=== PATIENT | male | born 1950 | race Caucasian/White ===

== ENCOUNTER 2018-03-14 11:21 | Day surgery (SDC) | payer OTHER ==
[2018-03-14] MEDS ORDERED: MIDAZOLAM 2 MG/2 ML VIAL IVP PRN (12:21)
[2018-03-14] MEDS ORDERED: FLUMAZENIL 0.5 MG/5 ML MDV IVP PRN (12:21)
[2018-03-14] MEDS ORDERED: NALOXONE HCL 0.4 MG/ML INJ IVP PRN (12:21)
[2018-03-14] MEDS ORDERED: fentaNYL 100 MCG/2 ML INJ IVP PRN (12:21)
[2018-03-14] MEDS ORDERED: NS 1,000 ML IV SCH (12:30)
[2018-03-14] MEDS ORDERED: IOPAMIDOL (ISOVUE-300) 100 ML BTL ONE (12:46)
--- NOTE | 2018-03-14 13:10 | PDPROPOC ---
Sedation Plan of Care Sedation Plan of Care: vital signs stable, mental status noted, patient educated of risks, benefits, alternatives, patient can tolerate sedation ASA Classification: ASA 3 Planned drugs: fentanyl, midazolam Mallampati Score: Class 2 Mallampati Reference Image: Patient passed 3-3-2 rule?: Yes
--- NOTE | 2018-03-14 13:15 | PDHPUP ---
History & Physical Update H&P update statement: This history and physical update is based on an assessment of the patient which was completed after admission or registration (within 24 hours), but prior to the surgery/procedure. I dictated a new H&P note into the system. H&P update: H&P reviewed & patient examined, no change in patient's condition since H&P completed (New H&P dictated)
--- NOTE | 2018-03-14 13:49 | GHP ---
DATE OF ADMISSION: 03/14/2018 The patient was seen and evaluated in the pre area at approximately 12:45 p.m. HISTORY OF PRESENT ILLNESS: This patient is a 67-year-old man with history of COPD and smoking, who was recently seen at [facility] by my partner, Dr. Foss, after having a seizure. 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 This measured 1.9 x 2.1 x 1.6 cm. This was further worked up with CT angiography and MRI at [facility]. He was subsequen tly discharged in good condition and presents again today for diagnostic cerebral angiography. He multani s not had any new symptoms and otherwise is feeling well today. REVIEW OF SYSTEMS: A 10-point review of systems is negative other than described above in the HPI. PAST MEDICAL HISTORY: 1. Hypertension. 2. Hyperlipidemia. 3. Tobacco abuse. 4. Type 2 diabetes. 5. Hyperthyroidism. 6. COPD. 7. Abdominal aortic atherosclerotic disease. 8. Osteopenia. 9. Peripheral vascular disease. 10. Salivary gland excision. ALLERGIES: No known drug allergies. MEDICATIONS: 1. Albuterol. 2. Aspirin. 3. Lisinopril. 4. Metformin. 5. Pravachol. 6. Methimazole. SOCIAL HISTORY: The patient is . He presents with his and son. He is a daily smoker of at least a pack and a half per day for almost 50 years. He lives independently. 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 FAMILY HISTORY: Positive for cancer, stroke, and mental illness in the father and diabetes in the mo ther. PHYSICAL EXAMINATION: VITAL SIGNS: Currently, he is afebrile with normal stable vital signs. NEURO LOGIC: He is awake, alert, and oriented x3. Cranial nerves 2-12 are grossly normal. He has a heali ng wound at the lateral canthus of the right eye consistent with his fall after the seizure. He has full 5/5 strength at the deltoid, biceps, triceps, wrist flexors and extensors, and office assistance bilaterally. In the lower extremities, he has 5/5 strength at the hip flexors and extensors, knee flexors and ex tensors, and plantar and dorsiflexion. His gait examination was deferred. Sensation is normal. Ivet p tendon reflexes are intact. IMAGING REVIEW: See HPI. ASSESSMENT/PLAN: The patient is a 67-year-old man who presents for elective diagnostic cerebral sheldon ogram. 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 I explained to him the risks and benefits of cerebral angiography, and he agrees t o proceed. We also discussed the significant risks that he would have of continuing smoking, althoug h he is not at all interested in quitting at this moment in time. I told him that we will likely harman edule a followup appointment later down the road to further discuss treatment of his aneurysm and susy pearson will not discuss that at length today given the sedation during the procedure. He is fine with t his plan. /[id number]/MODL
[2018-03-14 14:16] VITALS: BP 121/63
[2018-03-14] MEDS ORDERED: ONDANSETRON 4 MG/2 ML VIAL IVP PRN (14:21)
[2018-03-14] MEDS ORDERED: OXYCODONE/APAP 5/325 TAB PO PRN (14:21)
--- NOTE | 2018-03-14 14:23 | PDCONSULT ---
Banquet Chef Note: NEUROENDOVASCULAR resting well, no complaints AAOx3, speech fluent CNII-XII normal full strength and sensation, no drift groin c/d/i, distal pulses palpable s/p diagnostic angiogram - no complications - d/c home - will followup in clinic for discussion of treatment options Sailaja
== END 2018-03-14 17:28 | disposition home or self-care (01) ==
LOC: FIMAGING 11:21
PROVIDERS: ATTEND Neurological Surgery
DX: I67.1 Cerebral aneurysm, nonruptured (principal); I67.2 Cerebral atherosclerosis; I10 Essential (primary) hypertension; E78.5 Hyperlipidemia, unspecified; F17.210 Nicotine dependence, cigarettes, uncomplicated; J44.9 Chronic obstructive pulmonary disease, unspecified; E11.9 Type 2 diabetes mellitus without complications; E03.9 Hypothyroidism, unspecified
CPT/HCPCS: 36223; 36224; 36225; 99152; C1769; C1894; C1760; J1644; J2250; J2310; J3010; Q9967

== ENCOUNTER 2018-04-15 09:14 | Inpatient (IN) | payer OTHER ==
[2018-04-15] MEDS ORDERED: LIDOCAINE 2% 5 ML SDV ONE (09:22)
[2018-04-15] MEDS ORDERED: ROCURONIUM 50 MG/5 ML VIAL ONE ×3 (09:22→15:15)
[2018-04-15] MEDS ORDERED: DEXAMETHASONE 4 MG/ML VIAL ONE (09:22)
[2018-04-15] MEDS ORDERED: PROPOFOL/EMULSION 500 MG/50 ML BOTTLE IV ONE ×3 (09:22→16:53)
[2018-04-15] MEDS ORDERED: PROPOFOL 200 MG/20 ML VIAL ONE ×4 (09:22→16:53)
[2018-04-15] MEDS ORDERED: fentaNYL 250 MCG/5 ML INJ ONE (09:22)
[2018-04-15] MEDS ORDERED: ONDANSETRON 4 MG/2 ML VIAL ONE (09:22)
[2018-04-15] MEDS ORDERED: ACETAMINOPHEN 500 MG TAB PO ONE (09:31)
[2018-04-15] MEDS ORDERED: ceFAZolin 2 GM/DEXTROSE 100 ML IV ONE (09:31)
[2018-04-15] MEDS ORDERED: LR 1,000 ML IV ONE (09:32)
[2018-04-15] MEDS ORDERED: AVITENE POWDER 1 GM JAR TP ONE (09:36)
[2018-04-15] MEDS ORDERED: BACITRACIN ZINC 0.5 OZ OINTTUBE TP ONE (09:36)
[2018-04-15] MEDS ORDERED: THROMBIN (BOVINE) 20,000 UNIT VIAL TP ONE (09:36)
[2018-04-15] MEDS ORDERED: CHLORHEXIDINE GLUC HIBICLENS 118 ML BTL TP ONE (09:36)
[2018-04-15] MEDS ORDERED: BUPIVACAINE 0.25% 30 ML SDV ONE (09:36)
[2018-04-15] MEDS ORDERED: MANNITOL 20% 100 GM/500 ML BAG IV ONE (09:36)
[2018-04-15] MEDS ORDERED: GENTAMICIN SULFATE 80 MG/2 ML VIAL ONE (09:36)
[2018-04-15] MEDS ORDERED: EPINEPHrine 1 MG/ML INJ ONE (09:37)
[2018-04-15] MEDS ORDERED: INDOCYANINE GREEN 25 MG VIAL ONE (09:37)
[2018-04-15] MEDS ORDERED: CEFAZOLIN 2 GM/DEXTROSE/100 ML BAG IV ONE (09:38)
[2018-04-15] MEDS ORDERED: ACETAMINOPHEN 500 MG TAB ONE (09:38)
[2018-04-15] MEDS ORDERED: LR 500 ML IV PRN (10:00)
[2018-04-15] MEDS ORDERED: ONDANSETRON 4 MG/2 ML VIAL IVP PRN ×2 (10:00→16:17)
[2018-04-15] MEDS ORDERED: HYDROmorphONE/DILAUDID 2 MG/ML INJ IVP PRN (10:00)
[2018-04-15] MEDS ORDERED: MIDAZOLAM 2 MG/2 ML VIAL IVP ONE (10:00)
[2018-04-15] MEDS ORDERED: fentaNYL 100 MCG/2 ML INJ IVP PRN (10:00)
[2018-04-15] MEDS ORDERED: MEPERIDINE 25 MG/0.5 ML AMP IVP PRN (10:00)
[2018-04-15] MEDS ORDERED: oxyCODONE IR 5 MG TAB PO PRN (10:00)
[2018-04-15] MEDS ORDERED: METOCLOPRAMIDE 10 MG/2 ML VIAL IVP PRN (10:00)
[2018-04-15] MEDS ORDERED: PROMETHAZINE HCL 25 MG/ML INJ IVP PRN ×2 (10:00→16:17)
[2018-04-15] MEDS ORDERED: PHENYLEPHRINE HCL 100 MCG/ML SYR IVP PRN (10:00)
[2018-04-15] MEDS ORDERED: NALOXONE HCL 0.4 MG/ML INJ IVP PRN (10:00)
[2018-04-15 10:38] LABS: PLATELET COUNT 139 10^3/uL (150-400)
[2018-04-15] MEDS ORDERED: MIDAZOLAM 2 MG/2 ML VIAL ONE (13:48)
--- NOTE | 2018-04-15 13:52 | PDHPUP ---
History & Physical Update H&P update statement: This history and physical update is based on an assessment of the patient which was completed after admission or registration (within 24 hours), but prior to the surgery/procedure. H&P update: H&P reviewed & patient examined, no change in patient's condition since H&P completed
[2018-04-15] MEDS ORDERED: DEXMEDETOMIDINE HCL 200 MCG in NS 50 ML IV ONE (15:00)
[2018-04-15] MEDS ORDERED: hydrALAZINE 20 MG/ML VIAL ONE ×5 (15:14→18:47)
--- NOTE | 2018-04-15 15:21 | POSTANESTH ---
Post Anesthetic Evaluation Cardiovascular Status: Normal, Stable Respiratory Status: Normal, Stable Level of Consciousness/Mental Status: Can Participate in Eval Pain Control: Adequate, Prn Tx Ordered Nausea/Vomiting Control: Adequate, Prn Tx Ordered Complications Possibly Related to Anesthesia: None Noted
--- NOTE | 2018-04-15 15:35 | PDANEPAE ---
ANE Past Medical History - Cardiovascular History Hx Hypertension: Yes Hx Arrhythmias: No Hx Chest Pain: No Hx Coronary Artery / Peripheral Vascular Disease: Yes Hx CHF / Valvular Disease: No Hx Palpitations: No Cardiovascular History Comment: PVD. hyperlipidemia. pcp monitors bp medications - Pulmonary History Hx COPD: Yes Hx Asthma/Reactive Airway Disease: No Hx Recent Upper Respiratory Infection: No Hx Oxygen in Use at Home: No Hx Sleep Apnea: No Sleep Apnea Screening Result - Last Documented: Positive Pulmonary History Comment: jasmina triggers. instructed pt to bring inhalers to hospital - Neurologic History Hx Cerebrovascular Accident: No Hx Seizures: Yes Hx Dementia: No Neurologic History Comment: last seizure x1 03/02/18. cerebral aneurysm - Endocrine History Hx Diabetes: Yes Hyperthyroid: Yes Endocrine History Comment: type 2. hyperthyroidism not symptomatic - Renal History Hx Renal Disorders: Yes Renal History Comment: "some kidney disease" per - Liver History Hx Hepatic Disorders: No - Neurological & Psychiatric Hx Hx Neurological and Psychiatric Disorders: No - Cancer History Hx Cancer: No - Congenital Disorder History Hx Congenital Disorders: No - GI History Hx Gastrointestinal Disorders: Yes Gastrointestinal History Comment: colonoscopy with polyps removed - Other Health History Other Health History: wears glasses. full dentures - Chronic Pain History Chronic Pain: No - Surgical History Prior Surgeries: 03/14/18 diagnostic cerebral arteriogram with Sailaja. right saliva gland removed ANE Review of Systems Review of Systems: - Exercise capacity METS (RN): 4 METS ANE Patient History - Allergies Allergies/Adverse Reactions: No Known Allergies Allergy (Verified 04/15/18 09:51) - Home Medications Home Medications: Atorvastatin Calcium [Lipitor 40 mg (*)] 40 mg PO HS 03/14/18 [Last Taken ] Budesonide/Formoterol 160/4.5 [Symbicort 160-4.5 Mcg Inh (*)] 1 puffs IH BID 05/28 [Last Taken 04/15/18] Lisinopril [Zestril 10 mg (*)] 10 mg PO DAILY 03/14/18 [Last Taken 04/14/18] Methimazole [Tapazole 5MG (*)] 7.5 mg PO MWF 03/14/18 [Last Taken 04/13/18] levETIRAcetam [Keppra 500 mg (*)] 500 mg PO BID 03/14/18 [Last Taken 04/14/18] Acetaminophen [Tylenol ES 500 mg (*)] 500 mg PO Q6HRS PRN 04/12/18 [Last Taken 04/14/18] Albuterol [Proventil Inhaler HFA (*)] 2 puffs IH BID 04/12/18 [Last Taken ] Herbals/Supplements -Info Only 1 ea PO DAILY 04/12/18 [Last Taken 04/14/18] Methimazole [Tapazole 5MG (*)] 5 mg PO SUTUTHSA 04/12/18 [Last Taken 04/14/18] metFORMIN HCL [Glucophage 500 mg (*)] 500 mg PO BID 04/12/18 [Last Taken ] - NPO status NPO Since - Liquids (Date): 04/15/18 NPO Since - Liquids (Time): 08:00 NPO Since - Solids (Date): 04/14/18 NPO Since - Solids (Time): 23:00 - Smoking Hx Smoking Status: Heavy smoker - Family Anes Hx Family Hx Anesthesia Complications: none ANE Labs/Vital Signs - Labs Result Diagrams: 04/15/18 10:00 04/15/18 10:00 - Vital Signs Blood Pressure: 132/78 Heart Rate: 61 Respiratory Rate: 16 O2 Sat (%): 93 Height: 180.34 cm Weight: 78.018 kg ANE Physical Exam - Airway Neck exam: FROM Mallampati Score: Class 2 Mouth exam: dentures - Pulmonary Pulmonary: no respiratory distress, no rales or rhonchi, clear to auscultation - Cardiovascular Cardiovascular: regular rate and rhythym, no murmur, rub, or gallop - ASA Status ASA Status: III ANE Anesthesia Plan Anesthesia Plan: general endotracheal anesthesia
[2018-04-15] MEDS ORDERED: SUGAMMADEX SODIUM 200 MG/2 ML VIAL IVP ONE (15:41)
[2018-04-15] MEDS ORDERED: MAGNESIUM HYDROXIDE 30 ML UDCUP PO PRN (16:04)
[2018-04-15] MEDS ORDERED: POLYETHYLENE GLYCOL 3350 17 GM PKT PO PRN (16:04)
[2018-04-15] MEDS ORDERED: LACTULOSE 20 GM/30 ML UDCUP PO PRN (16:04)
[2018-04-15] MEDS ORDERED: BISACODYL 10 MG SUPP PR PRN (16:04)
[2018-04-15] MEDS ORDERED: ONDANSETRON DISINTEGRATING 4 MG TAB PO PRN (16:17)
[2018-04-15] MEDS ORDERED: HYDROCODONE/APAP 10/325 TAB PO PRN (16:17)
[2018-04-15] MEDS ORDERED: ACETAMINOPHEN 325 MG TAB PO PRN (16:17)
[2018-04-15] MEDS ORDERED: diphenhydrAMINE 25 MG CAP PO PRN (16:17)
[2018-04-15] MEDS ORDERED: METHOCARBAMOL 750 MG TAB PO PRN (16:17)
--- NOTE | 2018-04-15 17:20 | PDMN ---
Medical Necessity Medical necessity: [facility] [place] [facility] S410 Craniotomy, 3 days: 67 yo s/p frontal craniotomy for aneurysm clipping, [facility] only
[2018-04-15] MEDS ORDERED: PAPAVERINE HCL 60 MG/2 ML SDV ONE (17:41)
[2018-04-15] MEDS: metFORMIN HCL 500 MG TAB PO SCH (18:20)
[2018-04-15] MEDS ORDERED: METOPROLOL TARTRATE 5 MG/5 ML INJ ONE ×2 (18:38→18:47)
--- NOTE | 2018-04-15 20:12 | PDCONSULT ---
Store Leader Note: NEUROSURGERY resting well in PACU, recently taken off precidex lethargic but awakens to stim, answers a few questions follows simple commands x 4 limbs and localizes briskly with good strength wound c/d/i s/s drain output of about 50cc POD#0 s/p left OZ craniotomy for clipping of giant partially thrombosed Acomm aneurysm - doing well, likely will take some time to fully awaken - drain to thumb imprint suction - CT head in the morning - will do angiogram sunday or - SBP < 140 Sailaja
[2018-04-15] MEDS: BUDESONIDE/FORMOTEROL 160/4.5 60 PUFFS/MDI IH SCH (20:42)
[2018-04-15] MEDS: ALBUTEROL 60 PUFFS/8 GM MDI IH SCH (20:42)
--- NOTE | 2018-04-15 20:49 | GOP ---
[f rep st] OPERATIVE REPORT DATE OF OPERATION: 04/15/2018 SURGEON: Tonny Menard MD ANESTHESIA: General endotracheal. The temporary clip time was approximately 5 minutes with a 2nd short temporary clip time for a clip adjustment of about 2.5 minutes. The EEG was completely stable throughout the entire case with no changes. PREOPERATIVE DIAGNOSIS: Status post seizure with a large nearly 3 cm partially thrombosed anterior communicating artery aneurysm projecting into the gyrus rectus on the left. POSTOPERATIVE DIAGNOSIS: Status post seizure with a large nearly 3 cm partially thrombosed anterior communicating artery aneurysm projecting into the gyrus rectus on the left. PROCEDURE PERFORMED: 1. Left modified orbital zygomatic skull base approach. 2. 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 3. Use of the operative microscope. 4. Intraoperative EEG monitoring. FINDINGS: Successful aneurysm clipping. SPECIMENS: None. ESTIMATED BLOOD LOSS: 150 cc. DESCRIPTION OF PROCEDURE: After informed consent was obtained from the patient , the patient was brought to the operating room, was placed in a supine position on the operating table. A formal time-out was performed, identifying the patient by name, medical record number and date of . Preoperative antibiotics were given. The endotracheal tube was placed and general endotracheal anesthesia was smoothly induced. The patient's head was placed in the Parson pins and turned slightly toward the right side with the malar eminence at the highest point. All appropriate leads were placed for EEG monitoring and baseline EEG was obtained. A curvilinear incision standard for pterional craniotomy was marked and the hair was clipped. 20 cc of 0.25% Marcaine with epinephrine was infiltrated in the skin for hemostasis. The head was prepped and draped in the normal sterile fashion. The skin incision was made using a 10 blade and the subcutaneous tissues were dissected using monopolar electrocautery. The superficial temporal artery was carefully preserved and the galea was opened. Chepe clips were placed for hemostasis. The subgaleal dissection was then performed exposing anteriorly. A small muscle cuff of the temporalis was opened superiorly and the temporalis fascia was dissected down to the zygoma. The temporalis muscle was then opened and reflected inferiorly toward the zygoma. A subperiosteal dissection was carried toward the orbit and the dissection was carried into the orbit with care to preserve the periorbita where the periosteum was continuous with it. Once this exposure was obtained, 3 bur holes were created in standard pterional fashion. A standard pterional craniotomy was turned using the craniotome. A small dural rent was noticed near the orbit. All bleeding was controlled with bipolar electrocautery and Gelfoam. High-speed drill was then used to drill down the sphenoid wing and the subtemporal region giving good exposure of the orbit. At this point, the dura was stripped from the superior orbital roof and the sphenoid wing and a bone-cutting blade was used to perform a modified orbital zygomatic approach with an orbitotomy. First medially toward the orbit, a cut was made down posteriorly onto the orbital roof. A 2nd cut was made lateral to the frontal zygomatic suture and these 2 cuts were connected about 2.5 cm posteriorly to remove the orbital roof. The periorbita was intact. Posteriorly , we then removed the remainder of the orbit exposing the superior orbital fissure laterally. At this point, all bleeding was controlled with bipolar electrocautery and Gelfoam. The dura was then opened in a curvilinear fashion with its base at the sphenoid wing and this was used to retract the orbital contents giving a larger area of exposure for the approach. The operative microscope was then brought onto the field and the remainder of the procedure was performed under high-power magnification. First, the most proximal portion of the sylvian fissure was split using careful microdissection in the arachnoid bands. The optic nerve was identified and laterally the carotid artery was also identified. We continued this dissection medially and the ipsilateral A-1 segment was identified and carried medially toward the contralateral optic nerve. The optic chiasm and contralateral optic nerve were completely skeletonized. This allowed us to see the A-Comm complex in the midline. Dissection to the contralateral side revealed the contralateral A-1 segment and coursing anteriorly we were able to see the contralateral A-2 segment. This allowed a pretty good exposure, but the most proximal portion of the aneurysm neck was visualized and the aneurysm was jutting out into the ipsilateral gyrus rectus. We continued to careful microdissection in the interhemispheric fissure, but we were still unable to fully localize the contralateral or the ipsilateral A2. This did cause us to need to place a self-retaining retractor such that some gyrus rectus could be resected. The Fong retractor was placed and gyrus rectus resection was obtained. The aneurysm was at the ipsilateral A1, A2 junction. Therefore, the anterior communicating artery was visualized and was patent. A temporary clip was placed across the anterior communicating artery which allowed us to not need to place any temporary clips on the contralateral A1 or A2 segment leaving this open throughout the case. A temporary clip was also placed on the ipsilateral A1 segment to allow the final dissection of the dome. This allowed the aneurysm to soften quite a bit and on the posterior aspect we were able to visualize the contralateral A2. During this temporary clipping which lasted approximately 5 minutes, we then selected a 10 mm straight [employer] aneurysm clip which was placed across the aneurysm neck with care not to obstruct the contralateral A2. Due to the depth, the clip had to be replaced a couple of times, but ultimately I got a good closure of the aneurysm. The temporary clips were then removed, restoring full flow. Flow in the bilateral A -1 and A-2 segments and anterior communicating artery was confirmed using Doppler ultrasound and indocyanine Green angiography. There was a dog ear proximally on the aneurysm dome and distally I placed another 10 mm aneurysm clip distal to the 1st clip to be sure that we had closed the entire dome given the large size of this aneurysm. We then placed a shorter 6 mm clip on the dog ear and the entire anterior communicating artery complex was visualized and appeared that the aneurysm was completely clipped. Again, we checked with Doppler ultrasound and all flow in all vessels appeared quite good. Next, a 27- gauge needle was used to puncture the aneurysm dome coursing into the gyrus rectus. When no blood was returned, an 11 blade was used to cut into the dome and thrombectomy was performed from inside of the aneurysm sac to decrease the mass effect and allow the frontal lobe to relax. After this, all of the vessels were carefully inspected. These were covered with some papaverine soaked Gelfoam, which was later removed. All bleeding was controlled with bipolar electrocautery and some Surgicel. The retractor was removed and the frontal lobe was covered with Surgicel. The wound was copiously irrigated using sterile saline and no further bleeding was visualized. The frontal lobe had good relaxation. At this point, the dura was tacked closed using interrupted 4-0 Nurolon's. The dura was covered with some Gelfoam. The orbital roof was plated back in place using [employer] titanium plates and screws. The craniotomy flap was then plated back in place using [employer] titanium plates and screws. The supraorbital bar was also reconstructed using a piece of titanium mesh. At this point, the temporalis muscle and its fascia was closed over the mesh using 2-0 Vicryl's. A 10-Maltese KAITY drain was placed in the subgaleal space and the wound was again copiously irrigated using Bacitracin irrigation. The galea was closed using interrupted 2-0 Vicryl's and the skin was closed using a running 4-0 Monocryl. The patient was awakened in the operating room and was extubated and was transferred to the PACU in stable condition. There were no operative complications. I was scrubbed and present for the entire procedure. All sponge and needle counts were correct at the end of the case. ROOFER: Bart Foss M.D. BRIEF CLINICAL HISTORY: The patient is a 67-year-old heavy smoker who presented to the [facility] after having a seizure. Scanning revealed a heterogeneous mass in the left gyrus rectus with some surrounding edema. Ultimately this was identified as a partially thrombosed aneurysm. He subsequently underwent angiography by myself here at [facility] identifying the small residual filling neck. We did discuss both endovascular and surgical options, but given a large mass, I felt that surgical treatment would be more favorable. FLUIDS AND URINE OUTPUT: Per the anesthesia record. DRAINS: A subgaleal KAITY. /[id number]/MODL MTDD
[2018-04-15] MEDS ORDERED: levETIRAcetam 500 MG TAB PO SCH (21:00)
[2018-04-15] MEDS: ATORVASTATIN CALCIUM 40 MG TAB PO SCH (22:01)
[2018-04-15] MEDS: NS W/ 20 KCl/L 1,000 ML IV SCH (22:03)
[2018-04-15] MEDS: SENNOSIDES/DOCUSATE SODIUM TAB PO SCH (22:08)
[2018-04-15] MEDS: levETIRAcetam 500MG/NACL 100 ML IV SCH (22:46)
[2018-04-16] MEDS: niCARdipine/NACL 200 ML IV PRN ×2 (04:19→09:41)
--- NOTE | 2018-04-16 08:37 | NEUSURGPN ---
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 Menard. Subjective: No overnight issues. Objective: Patient lethargic but will awake to stimuli and sternal rub Follows commands x 4 Incision with dressing c/d/i KAITY drain x 1 - Physician Discussed Patient with : [facility] Neurosurgery Physical Exam - Vitals, I&O, Labs I and O 04/15/18 04/16/18 04/17/18 05:59 05:59 05:59 Intake Total 2252 Output Total 1765 Balance 487 Weight 78.018 kg Intake: IV Intake (ml) 1500 IV Infused (ml) 752 NS W/ 20 KCl/L 1,000 ml @ 752 75 mls/hr IV CONT EMIR Rx #:[id number] Output: Urine (ml) 1400 Catheter 1400 Estimated Blood Loss (ml) 150 KAITY Drain Output (ml) 215 Anterior Head 215 Vital Signs Temp Pulse Resp BP Pulse Ox 36.3 C 78 20 130/49 H 92 04/16/18 07:30 04/16/18 07:30 04/16/18 07:30 04/16/18 07:30 04/16/18 07:30 Laboratory Results 04/15/18 10:00 04/15/18 10:00 ICD10 Worksheet Patient Problems: Problems Problem Status Onset Aneurysm Acute - ICD10 Problem Qualifiers (1) Aneurysm
[2018-04-16] MEDS: LISINOPRIL 10 MG TAB PO SCH (09:03)
[2018-04-16] MEDS: METHIMAZOLE 5 MG TAB PO SCH (09:04)
[2018-04-16] MEDS: levETIRAcetam 500MG/NACL 100 ML IV SCH ×2 (09:04→21:01)
[2018-04-16] MEDS: metFORMIN HCL 500 MG TAB PO SCH ×2 (09:04→18:23)
[2018-04-16] MEDS: SENNOSIDES/DOCUSATE SODIUM TAB PO SCH ×2 (09:04→19:28)
[2018-04-16] MEDS: NS W/ 20 KCl/L 1,000 ML IV SCH (09:05)
[2018-04-16] MEDS: BUDESONIDE/FORMOTEROL 160/4.5 60 PUFFS/MDI IH SCH ×3 (09:18→20:59)
[2018-04-16] MEDS: ALBUTEROL 60 PUFFS/8 GM MDI IH SCH ×3 (09:19→20:59)
[2018-04-16] MEDS: hydrALAZINE 20 MG/ML VIAL IVP PRN (09:36)
[2018-04-16] MEDS ORDERED: *MD ORDERING ONLY-DEXAMETHASONE TAPER PO SCH (12:45)
--- NOTE | 2018-04-16 13:09 | ASMTCMCOM ---
CM Note CM Note Notes: Pt is a 67 yo M, underwent cranyotomy for aneurysm. Pt's at bedside, Mami. Pt's needs TBD at this time. PT/OT pending evals. CM to follow. Plan: TBD Date Signed: 04/16/2018 01:08 PM Electronically Signed By:CELI Morgan
[2018-04-16] MEDS: DEXAMETHASONE 4 MG TAB PO SCH ×3 (13:52→23:56)
[2018-04-16] MEDS ORDERED: levETIRAcetam 1000MG/NACL 100 ML IV ONE (15:15)
[2018-04-16] MEDS: ATORVASTATIN CALCIUM 40 MG TAB PO SCH (19:29)
[2018-04-16] MEDS: NS 1,000 ML IV SCH (21:02)
[2018-04-17] MEDS: DEXAMETHASONE 4 MG TAB PO SCH ×3 (05:31→21:50)
[2018-04-17] MEDS ORDERED: MIDAZOLAM 2 MG/2 ML VIAL IVP PRN (07:05)
[2018-04-17] MEDS ORDERED: HEPARIN 10,000 UNIT/10 ML MDV (1,000 UNIT/ML) IVP PRN (07:05)
[2018-04-17] MEDS ORDERED: FLUMAZENIL 0.5 MG/5 ML MDV IVP PRN (07:05)
[2018-04-17] MEDS ORDERED: fentaNYL 100 MCG/2 ML INJ IVP PRN (07:05)
[2018-04-17] MEDS ORDERED: PROTAMINE SULFATE 50 MG/5 ML VIAL IVP PRN (07:05)
[2018-04-17] MEDS ORDERED: NALOXONE HCL 0.4 MG/ML INJ IVP PRN (07:05)
[2018-04-17] MEDS ORDERED: NS 1,000 ML IV SCH (07:15)
[2018-04-17] MEDS ORDERED: LIDOCAINE 1% 300 MG/30 ML SDV ONE (07:18)
[2018-04-17] MEDS ORDERED: IOPAMIDOL (ISOVUE-300) 100 ML BTL ONE (07:18)
--- NOTE | 2018-04-17 08:09 | PDPROPOC ---
Sedation Plan of Care Sedation Plan of Care: vital signs stable, mental status noted, patient educated of risks, benefits, alternatives ASA Classification: ASA 3 Planned drugs: fentanyl Mallampati Score: Class 1 Mallampati Reference Image: Patient passed 3-3-2 rule?: Yes
--- NOTE | 2018-04-17 08:11 | PDCONSULT ---
Principal Accounts Clerk Note: NEUROSURGERY doing well, just did angiogram AAOx3, speech fluent full strength and sensation, no drift wound c/d/i, swelling of orbit improving POD#2 s/p OZ crani for clipping of giant Acomm aneurysm - angio shows complete obliteration of aneurysm, good flow - leave drain another day, remove tomorrow - PT/OT - ok to tx to floor - continue wound care Sailaja
[2018-04-17] MEDS: levETIRAcetam 500MG/NACL 100 ML IV SCH (09:16)
[2018-04-17] MEDS: HEPARIN 5,000 UNIT/0.5 ML INJ SC SCH ×2 (09:16→21:50)
[2018-04-17] MEDS: METHIMAZOLE 5 MG TAB PO SCH (10:44)
[2018-04-17] MEDS: SENNOSIDES/DOCUSATE SODIUM TAB PO SCH ×2 (10:44→21:50)
[2018-04-17] MEDS: metFORMIN HCL 500 MG TAB PO SCH ×2 (10:45→17:43)
[2018-04-17] MEDS: LISINOPRIL 10 MG TAB PO SCH (10:45)
[2018-04-17] MEDS: BUDESONIDE/FORMOTEROL 160/4.5 60 PUFFS/MDI IH SCH ×2 (11:22→22:00)
[2018-04-17] MEDS: ALBUTEROL 60 PUFFS/8 GM MDI IH SCH ×2 (11:22→22:00)
--- NOTE | 2018-04-17 13:11 | SOAPPROG ---
SOAP Progress Note Assessment/Plan: Assessment: 67 yo M POD #2 craniotomy for clipping of acomm aneurysm Plan: neuro: stable and doing well overall Angio this am with no evidence of residual aneurysm PT/OT on keppra transfer to floor Q4 hour neuro checks please call with neuro changes seen by Dr Menard earlier today 04/17/18 13:08 Subjective: No headaches, no N/V. Objective: Vital Signs Temp Pulse Resp BP Pulse Ox 37.1 C 96 19 116/52 L 96 04/17/18 00:00 04/17/18 12:00 04/17/18 12:00 04/17/18 12:00 04/17/18 12:00 Laboratory Results 04/15/18 10:00 04/15/18 10:00 04/16/18 04/17/18 04/18/18 05:59 05:59 05:59 Intake Total 2252 1739 Output Total 1765 1950 250 Balance 487 -211 -250 Awake, alert, oriented to name/place does not always cooperate with questions PERRL, left periorbital swelling, no facial droop ZOILA x 4 + light touch C/D/I ICD10 Worksheet Patient Problems: Problems Problem Status Onset Aneurysm Acute
[2018-04-17] MEDS: ATORVASTATIN CALCIUM 40 MG TAB PO SCH (21:50)
[2018-04-18] MEDS: levETIRAcetam 500MG/NACL 100 ML IV SCH ×3 (00:26→20:20)
[2018-04-18] MEDS: NS 1,000 ML IV SCH (00:36)
[2018-04-18] MEDS: DEXAMETHASONE 4 MG TAB PO SCH (06:26)
--- NOTE | 2018-04-18 09:15 | NEUSURGPN ---
Assessment/Plan: Assessment/Plan: Assessment: 67 yo M POD #3 craniotomy for clipping of acomm aneurysm Plan: neuro: Had increased confusion yesterday evening and overnight along with agitation and pulling at lines/drains, etc. Please limit any narcotics today and give Tylenol only. Will also stop steroids as this may be causing some delirium. Will remove KAITY drain at lunch today Angio done yesterday with no evidence of residual aneurysm PT/OT on keppra Q4 hour neuro checks please call with neuro changes Patient discussed with Dr. Menard as well S: Sleeping. Per RN very agitated overnight and restless, pulling at drains and confused. Per , he ate dinner last night but was somewhat confused as well. O: Somnolent, not participatory to exam this morning and grumbling Ecchymoses and swelling around left eye is improving WATSON X4 KAITY X1- minimal output Incision c/d/i - Physician Discussed Patient with Dr.: Menard Neurosurgery Physical Exam - Vitals, I&O, Labs I and O 04/17/18 04/18/18 04/19/18 05:59 05:59 05:59 Intake Total 1739 Output Total 1950 1015 Balance -211 -1015 Intake: Oral (ml) 240 IV Infused (ml) 1499 NS W/ 20 KCl/L 1,000 ml @ 1171 75 mls/hr IV CONT EMIR Rx #:[id number] Ns 1,000 ml @ 75 mls/hr 306 IV CONT EMRI Rx#: [id number] niCARdipine/NACL 200 ml @ 22 Titrate IV PRN PRN Rx#: [id number] Output: Urine (ml) 1900 1000 Urinal 1900 1000 KAITY Drain Output (ml) 50 15 Anterior Head 50 15 Other: Number of Voids Urinal 1 1 Vital Signs Temp Pulse Resp BP Pulse Ox 36.8 C 65 14 116/60 94 04/18/18 07:58 04/18/18 07:58 04/18/18 07:58 04/18/18 07:58 04/18/18 07:58 Laboratory Results 04/15/18 10:00 04/15/18 10:00 ICD10 Worksheet Patient Problems: Problems Problem Status Onset Aneurysm Acute
[2018-04-18] MEDS: ALBUTEROL 60 PUFFS/8 GM MDI IH SCH ×2 (09:56→20:07)
[2018-04-18] MEDS: BUDESONIDE/FORMOTEROL 160/4.5 60 PUFFS/MDI IH SCH ×2 (09:56→20:06)
[2018-04-18] MEDS: LISINOPRIL 10 MG TAB PO SCH (10:08)
[2018-04-18] MEDS: metFORMIN HCL 500 MG TAB PO SCH ×2 (10:12→18:54)
[2018-04-18] MEDS: SENNOSIDES/DOCUSATE SODIUM TAB PO SCH ×2 (10:13→20:03)
[2018-04-18] MEDS: METHIMAZOLE 5 MG TAB PO SCH (10:13)
[2018-04-18] MEDS: HEPARIN 5,000 UNIT/0.5 ML INJ SC SCH ×2 (11:40→20:04)
[2018-04-18] MEDS: hydrALAZINE 20 MG/ML VIAL IVP PRN (12:30)
--- NOTE | 2018-04-18 14:42 | ASMTCMCOM ---
CM Note CM Note Notes: OT rec inpatient rehab yesterday PT rec inpatient rehab and today pt declined PT two attempts to work with him PREP COOK kevin pending. [facility] inpatient rehab order input today they will follow pt- concern about pt current activity tolerance. Pt is having some confusion and agitation. Spoke with pt Mami and discussed all the d/c options, provided her the inpatient rehab, SNF and C choice lists. Mami states she ideally wants pt home and is encouraged by pt recognizing her today and walking to the bathroom. Mami reports she would have the help of her son at home. CM to follow pt progress for d/c planning. D/c plan is TBD. Date Signed: 04/18/2018 02:41 PM Electronically Signed By:KARAN Scott
[2018-04-18] MEDS ORDERED: DEXAMETHASONE 4 MG TAB PO SCH (18:00)
[2018-04-18] MEDS: ATORVASTATIN CALCIUM 40 MG TAB PO SCH (20:03)
--- NOTE | 2018-04-19 07:35 | SOAPPROG ---
SOAP Progress Note Assessment/Plan: Plan: Please limit any narcotics today and give Tylenol only. Will also stop steroids as this may be causing some delirium. Angio: no evidence of residual aneurysm PT/OT/ST on keppra Q4 hour neuro checks please call with neuro changes Patient discussed with Dr. Menard as well Subjective: asleep, wakes easily and is comfortable and cooperative with exam Denies pain. is present and states he was up all night. Objective: Vital Signs Temp Pulse Resp BP Pulse Ox 37.2 C 68 16 138/63 H 89 L 04/19/18 04:00 04/19/18 04:00 04/19/18 04:00 04/19/18 04:00 04/19/18 04:00 Laboratory Results 04/15/18 10:00 04/15/18 10:00 04/18/18 04/19/18 04/20/18 05:59 05:59 05:59 Intake Total 350 Output Total 1015 0 Balance -1015 350 NEuro: PERRLA, EOMI speech clear follows commands x 4 slight right triceps weakness no facial droop no pronator drift. Incision: CDI. NO KAITY present CTH 04/18 : small area of evolving ischemia in left frontal lobe. Dr. Menard aware. Minimally worse edema around Left caudate head - per report. ICD10 Worksheet Patient Problems: Problems Problem Status Onset Aneurysm Acute
[2018-04-19] MEDS: LISINOPRIL 10 MG TAB PO SCH (08:19)
[2018-04-19] MEDS: metFORMIN HCL 500 MG TAB PO SCH ×2 (08:19→16:42)
[2018-04-19] MEDS: METHIMAZOLE 5 MG TAB PO SCH ×2 (08:20→08:21)
[2018-04-19] MEDS: SENNOSIDES/DOCUSATE SODIUM TAB PO SCH ×2 (08:20→21:08)
[2018-04-19] MEDS: HEPARIN 5,000 UNIT/0.5 ML INJ SC SCH ×2 (08:22→21:07)
[2018-04-19] MEDS: levETIRAcetam 500MG/NACL 100 ML IV SCH ×2 (08:35→21:08)
[2018-04-19] MEDS: BUDESONIDE/FORMOTEROL 160/4.5 60 PUFFS/MDI IH SCH ×2 (08:46→21:48)
[2018-04-19] MEDS: ALBUTEROL 60 PUFFS/8 GM MDI IH SCH ×2 (08:46→21:48)
[2018-04-19] MEDS ORDERED: DEXAMETHASONE 2 MG TAB PO SCH (18:00)
[2018-04-19] MEDS: hydrALAZINE 20 MG/ML VIAL IVP PRN (21:07)
[2018-04-19] MEDS: ATORVASTATIN CALCIUM 40 MG TAB PO SCH (21:08)
[2018-04-20] MEDS: METHIMAZOLE 5 MG TAB PO SCH (08:06)
[2018-04-20] MEDS: LISINOPRIL 10 MG TAB PO SCH (08:06)
[2018-04-20] MEDS: metFORMIN HCL 500 MG TAB PO SCH ×2 (08:06→18:03)
[2018-04-20] MEDS: SENNOSIDES/DOCUSATE SODIUM TAB PO SCH ×2 (08:06→20:16)
[2018-04-20] MEDS: HEPARIN 5,000 UNIT/0.5 ML INJ SC SCH ×2 (08:09→20:16)
[2018-04-20] MEDS: levETIRAcetam 500MG/NACL 100 ML IV SCH (08:11)
--- NOTE | 2018-04-20 08:42 | NEUSURGPN ---
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 Menard. Subjective: Sitting in bedside chair. Denies pain. Objective: Awake. Alert to self and time Left periorbital ecchymosis Incision c/d/i Following commands, moving all ext - Physician Discussed Patient with Dr.: Menard Neurosurgery Physical Exam - Vitals, I&O, Labs I and O 04/19/18 04/20/18 04/21/18 05:59 05:59 05:59 Intake Total 350 700 Output Total 0 Balance 350 700 Intake: Oral (ml) 350 700 Output: Urine (ml) 0 Toilet 0 Other: Intake Quantity Yes Sufficient Output Comment Toilet pt sat on toilet and passed gas Number of Voids Toilet 1 1 Number of Stools Toilet 0 Vital Signs Temp Pulse Resp BP Pulse Ox 36.3 C 90 16 111/69 88 L 04/20/18 08:00 04/20/18 08:00 04/20/18 08:00 04/20/18 08:00 04/20/18 08:00 Laboratory Results 04/15/18 10:00 04/15/18 10:00 ICD10 Worksheet Patient Problems: Problems Problem Status Onset Aneurysm Acute - ICD10 Problem Qualifiers (1) Aneurysm
[2018-04-20] MEDS: BUDESONIDE/FORMOTEROL 160/4.5 60 PUFFS/MDI IH SCH (10:09)
[2018-04-20] MEDS: ALBUTEROL 60 PUFFS/8 GM MDI IH SCH (10:10)
--- NOTE | 2018-04-20 15:56 | ASMTCMCOM ---
CM Note CM Note Notes: PT is still recommending inpatient rehab. Left message for Gina requesting her to re-assess pt on Sunday. CM will continue to follow for d/c needs. D/C plan: TBD Date Signed: 04/20/2018 03:55 PM Electronically Signed By:KARAN Kaur
[2018-04-20] MEDS: ATORVASTATIN CALCIUM 40 MG TAB PO SCH (20:16)
[2018-04-20] MEDS: levETIRAcetam 500 MG TAB PO SCH (20:16)
[2018-04-21] MEDS: ALBUTEROL 60 PUFFS/8 GM MDI IH SCH ×3 (00:34→21:01)
[2018-04-21] MEDS: BUDESONIDE/FORMOTEROL 160/4.5 60 PUFFS/MDI IH SCH ×3 (00:34→21:01)
--- NOTE | 2018-04-21 08:06 | NEUSURGPN ---
Date of Surgery: 04/15/18 Post Op Day: 6 Assessment/Plan: 67 yo male s/p left OZ craniotomy for clipping of large Acomm aneurysm - neuro stable, neuro checks every 4 hours - postop angio: no evidence of residual aneurysm - continue Keppra - limit narcotics, Tylenol for pain relief - PT/OT/[employer] - please contact neurosurgery with any changes in neuro status/exam - Dispo: PT/OT recommending inpatient rehab, to be evaluated for inpatient rehab tomorrow. DC when bed available Discussed with Dr. Menard. Subjective: No headache, nausea, vomiting. Objective: Awake. Alert. PERRL Facial expression symmetrical Following commands, WATSON Incision c/d/i - Physician Discussed Patient with Dr.: Menard Neurosurgery Physical Exam - Vitals, I&O, Labs I and O 04/20/18 04/21/18 04/22/18 05:59 05:59 05:59 Intake Total 700 600 Balance 700 600 Intake: Oral (ml) 700 600 Other: Intake Quantity Yes Sufficient Number of Voids Toilet 1 1 Number of Stools Toilet 2 1 Vital Signs Temp Pulse Resp BP Pulse Ox 36.8 C 83 13 117/62 93 04/21/18 07:50 04/21/18 07:50 04/21/18 07:50 04/21/18 07:50 04/21/18 07:50 Laboratory Results 04/15/18 10:00 04/15/18 10:00 ICD10 Worksheet Patient Problems: Problems Problem Status Onset Aneurysm Acute - ICD10 Problem Qualifiers (1) Aneurysm
[2018-04-21] MEDS: HEPARIN 5,000 UNIT/0.5 ML INJ SC SCH ×2 (08:40→20:53)
[2018-04-21] MEDS: metFORMIN HCL 500 MG TAB PO SCH ×2 (08:43→17:39)
[2018-04-21] MEDS: levETIRAcetam 500 MG TAB PO SCH ×2 (08:43→20:53)
[2018-04-21] MEDS: METHIMAZOLE 5 MG TAB PO SCH (08:43)
[2018-04-21] MEDS: LISINOPRIL 10 MG TAB PO SCH (08:44)
[2018-04-21] MEDS: SENNOSIDES/DOCUSATE SODIUM TAB PO SCH ×2 (08:44→20:53)
[2018-04-21] MEDS ORDERED: DEXAMETHASONE 2 MG TAB PO SCH (18:00)
[2018-04-21] MEDS: ATORVASTATIN CALCIUM 40 MG TAB PO SCH (20:53)
--- NOTE | 2018-04-22 08:38 | NEUSURGPN ---
Assessment/Plan: Assessment/Plan: Assessment/Plan: 67 yo male s/p left OZ craniotomy for clipping of large Acomm aneurysm - neuro stable, neuro checks every 4 hours. 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 DC when bed available Discussed with Dr. Menard. Subjective: Less verbal this morning. Per family he is somewhat agitated this morning and does not want to be up in the chair. Son states that he slept well last night. Objective: Awake. somnolent but arousable. Sitting in a chair Left eye with some hemorrhage still and ecchymoses as expected after this approach Facial expression symmetrical Not very participatory in his exam this morning but nodding head appropriately and moving all extremities Incision c/d/i Neurosurgery Physical Exam - Vitals, I&O, Labs I and O 04/21/18 04/22/18 04/23/18 05:59 05:59 05:59 Intake Total 600 300 Balance 600 300 Intake: Oral (ml) 600 300 Other: Intake Quantity Yes Yes Sufficient Number of Voids Toilet 1 1 1 Number of Stools Toilet 1 1 Vital Signs Temp Pulse Resp BP Pulse Ox 37.4 C 98 16 106/79 90 L 04/22/18 07:15 04/22/18 07:15 04/22/18 07:15 04/22/18 07:15 04/22/18 07:15 Laboratory Results 04/15/18 10:00 04/15/18 10:00 ICD10 Worksheet Patient Problems: Problems Problem Status Onset Aneurysm Acute
[2018-04-22] MEDS: ALBUTEROL 60 PUFFS/8 GM MDI IH SCH (08:46)
[2018-04-22] MEDS: BUDESONIDE/FORMOTEROL 160/4.5 60 PUFFS/MDI IH SCH (08:47)
[2018-04-22] MEDS: METHIMAZOLE 5 MG TAB PO SCH (10:37)
[2018-04-22] MEDS: levETIRAcetam 500 MG TAB PO SCH (10:37)
[2018-04-22] MEDS: LISINOPRIL 10 MG TAB PO SCH (10:39)
[2018-04-22] MEDS: metFORMIN HCL 500 MG TAB PO SCH (10:39)
[2018-04-22] MEDS: SENNOSIDES/DOCUSATE SODIUM TAB PO SCH (10:40)
[2018-04-22] MEDS: HEPARIN 5,000 UNIT/0.5 ML INJ SC SCH (10:40)
[2018-04-22 10:54] VITALS: BP 120/73
--- NOTE | 2018-04-22 12:09 | PDIAF ---
- Diagnosis Code Status: Full Code - Medication Management Discharge Medications: electronically signed and located in the Home Medication List. - Orders Services needed: Registered Nurse, Physical Therapy, Occupational Therapy, Speech Language Pathologist Diet Recommendation: no restrictions on diet Diet Texture: Regular Texture Diet Elpidio Stockings Discontinue Date: once walking 3 times a day for 10 minutes each time Wound Care Instructions: Shower daily or every other day. Please get incision wet and wash with warm soapy water. Pat dry with towel and leave clean and dry Sutures/Cyclone Site: Stures are dissolvable Activity/Weight Bearing Restrictions: Activity as tolerated. Wlaking encouraged. No lifting more than 10-15 pounds for 6 weeks Additional Instructions: Activity as tolerated Walking is encouraged Avoid any heavy lifting more than 15 pounds for 6 weeks Please shower and wash hair every other day, may get incision wet with soapy water, pat dry with towel and leave clean and dry Follow up with Dr. Menard in 2-3 weeks. Please call [phone] to make this appointment Any intractable headaches, new onset weakness, excessive vomiting, call - Follow Up Care Current Providers and Referrals: MICK ROBBINS MD [Other] Tonny Menard MD [Medical Doctor] - follow up in 2 weeks
--- NOTE | 2018-04-22 14:10 | ASMTLACE ---
LACE Length of stay for Answers: 7-13 days current admission Acuity / Level of Answers: Yes Care: Did the patient have an inpatient admission? Comorbidities - select Answers: Chronic pulmonary disease all that apply Coronary Artery Disease Diabetes (uncontrolled or controlled) Peripheral vascular disease Other Notes: HTN; HLD # of Emergency department Answers: 0 visits in the last 6 months Score: 15 Date Signed: 04/22/2018 02:09 PM Electronically Signed By:KARAN Scott
--- NOTE | 2018-04-22 14:12 | ASMTCMCOM ---
CM Note CM Note Notes: Pt medically stable for d/c to [facility]. Pt does not qualify for [facility] inpatient rehab. Pt Mami chose [facility] and they can accept pt today, orders sent in [employer]. Stretcher transport arranged for 1500 with [facility]. RON James to call report. Date Signed: 04/22/2018 02:12 PM Electronically Signed By:KARAN Scott
--- NOTE | 2018-04-23 16:24 | ASDISCHSUM ---
Discharge Information Plan Status:SNF Medically Cleared to Leave: Discharge Date:04/22/2018 03:07 PM CM D/C Disposition: ADT D/C Disposition:Other Rehab, Not John Projected Discharge Date:04/23/2018 11:00 AM Transportation at D/C: Discharge Delay Reason: Follow-Up Date:04/23/2018 11:00 AM Discharge Slot: Final Diagnosis: Placement Information Referral Type:*Care Home/SNF Referral ID:[id number] Provider Name:[facility] Address 1:[address] Address 2: City:[place] Selection Factors: State:[place] Patient Contact Information Contact Name:JOLLYABRILHIEU Relationship: Address:[address] City:[place] Alternate Phone: State/Zip Code:[place] [address] Email: Financial Information Financial Class:Medicare Primary Plan Desc:MEDICARE INPATIENT Primary Plan Number:[id number] Secondary Plan Desc:LIANA Secondary Plan Number:[id number] Assessment Information [facility] CM Progress Note CM Note CM Note Notes: Pt is a 67 yo M, underwent cranyotomy for aneurysm. Pt's at bedside, Mami. Pt's needs TBD at this time. PT/OT pending evals. CM to follow. Plan: TBD Date Signed: 04/16/2018 01:08 PM Electronically Signed By:CELI Morgan LACE ANY Length of stay for Answers: 7-13 days current admission Acuity / Level of Answers: Yes Care: Did the patient have an inpatient admission? 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 [facility] inpatient rehab order input today they will follow pt- concern about pt current activity tolerance. Pt is having some confusion and agitation. Spoke with pt Mami and discussed all the d/c options, provided her the inpatient rehab, SNF and HHC choice lists. Mami states she ideally wants pt home and is encouraged by pt recognizing her today and walking to the bathroom. Mami reports she would have the help of her son at home. CM to follow pt progress for d/c planning. D/c plan is TBD. Date Signed: 04/18/2018 02:41 PM Electronically Signed By:KARAN Scott [facility] CM Progress Note CM Note CM Note Notes: PT is still recommending inpatient rehab. Left message for Gina requesting her to re-assess pt on Sunday. CM will continue to follow for d/c needs. D/C plan: TBD Date Signed: 04/20/2018 03:55 PM Electronically Signed By:KARAN Kaur [facility] CM Progress Note CM Note CM Note Notes: Pt medically stable for d/c to [facility]. Pt does not qualify for [facility] inpatient rehab. Pt Mami chose [facility] and they can accept pt today, orders sent in [employer]. Stretcher transport arranged for 1500 with [facility]. RON James to call report. Date Signed: 04/22/2018 02:12 PM Electronically Signed By:KARAN Scott Intervention Information Intervention Type:*IM-Signed Date of Service:04/22/2018 01:55 PM Patient Type:Inpatient Staff Member:Lora Winkler Hours: Discipline: Severity: Comment:
--- NOTE | 2018-05-08 12:47 | GDS ---
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 HISTORY OF PRESENT ILLNESS: This is a 67-year-old heavy smoker who presented to [facility] after having a seizure. Scanning revealed a heterogeneous mass in the left gyrus rectus with shira e surrounding edema. Ultimately, this was identified as a partially thrombosed aneurysm. He subsequ ently underwent angiography by Dr. Menard at [facility], identifying a small residual filling. We discussed both endovascular and surgical options. Given a large mass, we felt that surg ical treatment would be more favorable. HOSPITAL COURSE: The patient was admitted to [facility] on 04/15/2018, where he unde rwent a left modified orbital zygomatic skull base approach for microsurgical clipping of a partially thrombosed anterior communicating artery aneurysm, unruptured. The patient tolerated this procedure well, and there were no complications. He was then taken to the recovery room, where he continued to recover until he met criteria for transfer to the intensive car e unit. There, he was watched closely with neurologic checks, and his blood pressure was maintained at systolic of less than 140. His postop head CT was performed the following morning and was stable. He was then taken for an angiogram by Dr. Tonny Menard on postop day 2, and this showed a vessel cl ipping of the aneurysm without any residual aneurysm. The patient did have increased confusion over the evening of the and became agitated, pulling at his drains and lines. Narcotics were limited, and only Tylenol was given. His steroids were also stopped. This helped, and overall his agitation improved. He was then seen by therapies. He was ultimately deemed fit and stable for discharge to inpatient rehab facility on 04/22/2018 in good and stable condition. MEDICATIONS: Please see discharge home medication reconciliation report. FOLLOWUP CARE: Patient is to follow up with Dr. Menard in approximately 2 weeks. He is to monitor hi s incision for any signs of infection, including drainage, fever, or chills. He is to call with any increased, new, or worsening symptoms, such as intractable headaches, excessive nausea, vomiting, slu rring of speech, or any weaknesses in his extremities. If any of these symptoms occur and are intrac table, he is to go to the ER. Any evidence of seizures, he is to go to the ER. He will continue on his Keppra medication for seizure prophylaxis. Any questions or concerns, he is to call [facility], . /[id number]/MODL
== END 2018-04-22 15:07 | DRG 26 ==
LOC: F3N 09:14 → F2N 11:09 → F3N 04-17 18:19
PROVIDERS: ADMIT Neurological Surgery; ATTEND Neurological Surgery
PROC: 03VG0CZ Restriction of Intracranial Artery with Extraluminal Device, Open Approach (ICD-10-PCS; principal; 2018-04-15 11:30)
PROC: 03CG0ZZ Extirpation of Matter from Intracranial Artery, Open Approach (ICD-10-PCS; principal; 2018-04-15 11:30)
PROC: 4A10X4G Monitoring of Central Nervous Electrical Activity, Intraoperative, External Approach (ICD-10-PCS; principal; 2018-04-15 11:30)
PROC: B31R1ZZ Fluoroscopy of Intracranial Arteries using Low Osmolar Contrast (ICD-10-PCS; 2018-04-17)
DX: I67.1 Cerebral aneurysm, nonruptured (principal); I66.12 Occlusion and stenosis of left anterior cerebral artery; F05 Delirium due to known physiological condition; T40.605A Adverse effect of unspecified narcotics, initial encounter; T38.0X5A Adverse effect of glucocorticoids and synthetic analogues, initial encounter; J44.9 Chronic obstructive pulmonary disease, unspecified; F17.210 Nicotine dependence, cigarettes, uncomplicated; I10 Essential (primary) hypertension; E78.5 Hyperlipidemia, unspecified; E11.9 Type 2 diabetes mellitus without complications
CPT/HCPCS: 92507-GN; 92523-GN; 97116-GP; 97163-GP; 97166-GO; 97530-GO; 97530-GP; 97535-GO; C1713; C1760; C1769; C1894; J0171; J0360; J0690; J1100; J1580; J1644; J1953; J2250; J2310; J2405; J2440; J2704; J3010; Q9967